=== PATIENT | female | born 1985 | race Caucasian/White ===

== ENCOUNTER 2022-05-10 15:24 | Emergency (ER) | payer BC ==
[2022-05-10 16:22] LABS: RESPIRATORY SYNCYTIAL VIR NAA NEGATIVE (NEGATIVE)
[2022-05-10 16:23] LABS: CORONAVIRUS COVID-19 NAA POSITIVE (NEGATIVE)
[2022-05-10] MEDS ORDERED: Ketorolac 30 MG/ML SDV IM ONE (16:38)
== END 2022-05-10 17:03 | disposition home or self-care (01) ==
LOC: DL.ED 15:24
DX: U07.1 COVID-19 (principal); Z79.899 Other long term (current) drug therapy
CPT/HCPCS: 0241U; 87081; 87430; 96372; 99284; J1885